=== PATIENT | male | born 1990 | race Caucasian/White ===

== ENCOUNTER 2019-02-13 21:41 | Emergency (ER) | payer OTHER ==
[2019-02-13] MEDS: HYDROCODONE/APAP (10/325) TAB PO (23:27)
== END 2019-02-14 00:30 | disposition home or self-care (01) ==
LOC: FTE 02-14 00:30
DX: K08.89 Other specified disorders of teeth and supporting structures (principal); F17.210 Nicotine dependence, cigarettes, uncomplicated
CPT/HCPCS: 99283; Z7610